=== PATIENT | male | born 1960 | race Caucasian/White ===

== ENCOUNTER 2022-10-26 14:31 | Outpatient (OUT) | payer OTHER, SELFPAY ==
[2022-10-26 16:19] LABS: Prostate Specific Antigen Dx 1.26 ng/mL (<=4.00)
== END 2022-10-26 14:32 | disposition home or self-care (01) ==
PROVIDERS: PCP Family Medicine; Visit Provider Urology
DX: N40.1 Benign prostatic hyperplasia with lower urinary tract symptoms (principal); R97.20 Elevated prostate specific antigen [PSA]; R80.9 Proteinuria, unspecified; R35.1 Nocturia
CPT/HCPCS: 36415; 84153

== ENCOUNTER 2022-12-29 07:50 | Outpatient (OUT) | payer OTHER, SELFPAY ==
[2022-12-29 08:08] LABS: Basophils Percent Auto 0.6 % (0.2-2.0); Eosinophils Absolute Auto 0.1 10^3/uL (0.0-0.7); Eosinophils Percent Auto 2.7 % (0.9-7.0); Hematocrit 42.8 % (42.0-54.0); Hemoglobin 14.9 g/dL (14.0-18.0); Immature Granulocytes Abs Auto 0.01 10^3/uL (0.00-0.03); Immature Granulocytes Pct Auto 0.2 % (0.0-0.5); Lymphocytes Absolute Auto 1.7 10^3/uL (1.2-3.8); Lymphocytes Percent Auto 36.6 % (20.5-60.0); Mean Corpuscular HGB Conc 34.8 g/dL (29.9-35.2); Mean Corpuscular Hemoglobin 32.7 pg (25.9-34.0); Mean Corpuscular Volume 94.1 fL (80.0-94.0); Mean Platelet Volume 9.3 fL (9.5-13.5); Monocytes Absolute Auto 0.5 10^3/uL (0.3-0.8); Monocytes Percent Auto 9.9 % (1.7-12.0); Neutrophils Absolute Auto 2.4 10^3/uL (1.4-6.5); Platelet Count 257 10^3/uL (150-450); Red Blood Count 4.55 10^6/uL (4.70-6.10); White Blood Count 4.8 10^3/uL (4.0-11.0)
[2022-12-29 08:25] LABS: Estimated Average Glucose 131 mg/dL; Glycohemoglobin A1C 6.2 % (4.5-6.2)
[2022-12-29 09:02] LABS: Prostate Specific Antigen Scrn 2.17 ng/mL (<=4.00)
[2022-12-29 11:29] LABS: Alanine Aminotransferase 35 U/L (16-63); Albumin Globulin Ratio 1.1; Albumin Level 4.1 g/dL (3.4-5.0); Alkaline Phosphatase 65 U/L (46-116); Anion Gap 9.2; Aspartate Amino Transferase 21 U/L (15-37); BUN Creatinine Ratio 11.2; Bilirubin Total 0.8 mg/dL (0.2-1.0); Calcium 8.3 mg/dL (8.5-10.1); Carbon Dioxide 31.4 mmol/L (21.0-32.0); Chloride 103 mmol/L (98-107); Chol HDL Ratio 4.8; Cholesterol 236 mg/dL (<=200); Estimated GFR (African America >60 (>=60); Estimated GFR (Non-African Ame >60 (>=60); Globulin 3.6 g/dL; Glucose 145 mg/dL (74-106); HDL Cholesterol 49 mg/dL (40-60); Potassium 3.6 mmol/L (3.5-5.1); Sodium 140 mmol/L (136-145); Thyroid Stimulating Hormone 3.147 uIU/mL (0.358-3.740); Total Protein 7.7 g/dL (6.4-8.2); Triglycerides 232 mg/dL (<=150); VLDL CHOLESTEROL 46.4 mg/dL
== END 2022-12-29 07:51 | disposition home or self-care (01) ==
PROVIDERS: PCP Family Medicine; Visit Provider Family Medicine
DX: Z00.00 Encounter for general adult medical examination without abnormal findings (principal); E78.5 Hyperlipidemia, unspecified; R73.09 Other abnormal glucose; Z12.5 Encounter for screening for malignant neoplasm of prostate
CPT/HCPCS: 36415; 80053; 80061; 83036; 84436; 84443; 84481; 85025; G0103

== ENCOUNTER 2024-01-20 09:39 | Outpatient (OUT) | payer MEDICARE, SELFPAY ==
[2024-01-20 10:38] LABS: Basophils Percent Auto 0.6 % (0.2-2.0); Eosinophils Absolute Auto 0.1 10^3/uL (0.0-0.7); Eosinophils Percent Auto 2.6 % (0.9-7.0); Hematocrit 41.9 % (42.0-54.0); Hemoglobin 14.7 g/dL (14.0-18.0); Immature Granulocytes Abs Auto 0.01 10^3/uL (0.00-0.03); Immature Granulocytes Pct Auto 0.2 % (0.0-0.5); Lymphocytes Absolute Auto 1.7 10^3/uL (1.2-3.8); Lymphocytes Percent Auto 33.8 % (20.5-60.0); Mean Corpuscular HGB Conc 35.1 g/dL (29.9-35.2); Mean Corpuscular Hemoglobin 32.5 pg (25.9-34.0); Mean Corpuscular Volume 92.5 fL (80.0-94.0); Mean Platelet Volume 9.7 fL (9.5-13.5); Monocytes Absolute Auto 0.5 10^3/uL (0.3-0.8); Monocytes Percent Auto 9.9 % (1.7-12.0); Neutrophils Absolute Auto 2.7 10^3/uL (1.4-6.5); Neutrophils Percent Auto 52.9 % (43.0-75.0); Platelet Count 260 10^3/uL (150-450); Red Blood Count 4.53 10^6/uL (4.70-6.10); Red Cell Distribution Width 11.8 % (11.0-15.0)
[2024-01-20 11:10] LABS: Estimated Average Glucose 160 mg/dL; Glycohemoglobin A1C 7.2 % (4.5-6.2)
[2024-01-20 11:26] LABS: Alanine Aminotransferase 54 U/L (16-63); Albumin Level 3.5 g/dL (3.4-5.0); Alkaline Phosphatase 78 U/L (46-116); Anion Gap 10.2; Aspartate Amino Transferase 42 U/L (15-37); BUN Creatinine Ratio 12.9; Bilirubin Total 0.8 mg/dL (0.2-1.0); Calcium 8.1 mg/dL (8.5-10.1); Carbon Dioxide 30.3 mmol/L (21.0-32.0); Chloride 104 mmol/L (98-107); Chol HDL Ratio 4.7; Cholesterol 192 mg/dL (<=200); Estimated GFR (African America >60 (>=60 mL/min/1.73m^2); Estimated GFR (Non-African Ame >60 (>=60 mL/min/1.73m^2); Free T3 2.54 pg/mL (2.18-3.98); Globulin 3.4 g/dL; Glucose 207 mg/dL (74-106); HDL Cholesterol 41 mg/dL (40-60); Potassium 3.5 mmol/L (3.5-5.1); Sodium 141 mmol/L (136-145); Thyroid Stimulating Hormone 2.358 uIU/mL (0.358-3.740); Total Protein 6.9 g/dL (6.4-8.2); Triglycerides 277 mg/dL (<=150); VLDL CHOLESTEROL 55.4 mg/dL
== END 2024-01-20 09:40 | disposition home or self-care (01) ==
LOC: LAB 09:43
PROVIDERS: PCP Family Medicine; Visit Provider Family Medicine
DX: E78.1 Pure hyperglyceridemia (principal); R97.20 Elevated prostate specific antigen [PSA]; E11.9 Type 2 diabetes mellitus without complications; I10 Essential (primary) hypertension; E78.5 Hyperlipidemia, unspecified; R53.83 Other fatigue; Z12.12 Encounter for screening for malignant neoplasm of rectum; E03.9 Hypothyroidism, unspecified
CPT/HCPCS: 36415; 80053; 80061; 83036; 84153; 84436; 84443; 84481; 85025

== ENCOUNTER 2024-01-20 09:55 | Outpatient (OUT) | payer MEDICARE, SELFPAY ==
[2024-01-20 11:49] LABS: Prostate Specific Antigen Dx 0.91 ng/mL (<=4.00)
== END 2024-01-20 09:56 | disposition home or self-care (01) ==
LOC: LAB 09:56
PROVIDERS: PCP Family Medicine; Visit Provider Urology
DX: R97.20 Elevated prostate specific antigen [PSA] (principal)
CPT/HCPCS: 36415; 84153

== ENCOUNTER 2025-03-09 08:31 | Outpatient (OUT) | payer MEDICARE, SELFPAY ==
--- OUTSIDE RECORDS SUMMARY | 2025-03-09 08:45 | XMS_ITS | CCD ---
Author Organization [facility] Care Team Providers Care Business Banking Manager Name Role Phone Sahra Byren Primary Care Physician KARTIK, DR BOCANEGRA Primary Care Unavailable CLAUDIA, DR DHEERAJ Wheeler Admitting Unavailable CLAUDIA, DR DHEERAJ Wheeler Attending Unavailable CLAUDIA, DR DHEERAJ Wheeler Consulting Unavailable KARTIK, DR BOCANEGRA Admitting Unavailable KARTIK, DR BOCANEGRA Attending Unavailable KARTIK, DR BOCANEGRA Primary Care Unavailable KARTIK, DR BOCANEGRA Consulting Unavailable LONG, DR TALLEY Admitting Unavailable GARCIA, DR TALLEY Attending Unavailable HOY, DR BOCANEGRA Primary Care Unavailable LONG, DR TALLEY Consulting Unavailable GARCIA, Dioni Wheeler Attending Unavailable GARCIA, Dioni Wheeler Attending Unavailable GARCIA, Dioni Wheeler Attending Unavailable GARCIA, Dioni Wheeler Admitting Unavailable GARCIA, Dioni Wheeler Attending Unavailable GARCIA, Dioni Wheeler Attending Unavailable GARCIA, Dioni Wheeler Admitting Unavailable GARCIA, Dioni Wheeler Attending Unavailable Allergies Allergy ClassificationReported Allergen(s)Allergy TypeDate of OnsetReaction(s) Facility (2 sources)No Known Medication Allergies; Translations: [No Known Medication Allergies]Propensity to adverse reactions (disorder)[facility] Repository Medications Current Medications MedicationDrug Class(es)DatesSig (Normalized)Sig (Original)Amlodipine (5 sources)Dihydropyridine Calcium Channel BlockerStart: 47-00-2564cyvlegkmhh Refills(s) 0 Start Date: 09/24/19 Status: Ordered Medication Dispense Status: Completed Total Allowed Fills: 1 Fills Dispensed: 0Start: 06-90-6248qounjfpwke Refills(s) 0 Start Date: 09/24/19 Status: Ordered Repeat number: 1Start: 82-28-6193wrmfmozozb Refills(s) 0 Start Date: 09/24/19 Status: Orderedbenazepril (5 sources)Angiotensin Converting Enzyme InhibitorStart: 49-43-5598qnhivpdiva Refills(s) 0 Start Date: 09/24/19 Status: Ordered Medication Dispense Status: Completed Total Allowed Fills: 1 Fills Dispensed: 0Start: 43-00-9243nqiodbwhtb Refills(s) 0 Start Date: 09/24/19 Status: Ordered Repeat number: 1Start: 64-33-6466iokiejqvjh Refills(s) 0 Start Date: 09/24/19 Status: Ordereddutasteride 0.5 mg / tamsulosin hydrochloride 0.4 mg oral capsule (5 sources)alpha-Adrenergic Malvin, 5-alpha Reductase InhibitorStart: 02-03-2024 End: 27-70-2505gsrckpgyjlv-tamsulosin 0.5 mg-0.4 mg oral capsule 1 cap(s), Oral, Daily for 90 day(s), 90 cap(s), Refill(s) 3, [employer] #72, 186, cm, 02/03/24 11:51:00 EST, Height/Length Dosing, 111, kg, 02/03/24 11:51:00 EST, Weight Dosing Start Date: 10/27/24 Stop Date: 10/22/25 Status: Ordered Medication Dispense Status: Completed Quantity: 90.0 Unit: cap(s) Total Allowed Fills: 4 Fills Dispensed:0Start: 95-01-1843ntfehiflekp-tamsulosin 0.5 mg-0.4 mg oral capsule 1 cap(s), Oral, Daily, 30 cap(s), Refill(s) 11, [facility] General Specific #[id number], 185, cm, 08/18/20 11:23:00 EDT, Height/Length Dosing, 105, kg, 08/18/20 11:23:00 EDT, Weight Dosing Start Date: 08/28/20 Status: Orderedezetimibe 10 mg oral tablet (5 sources)Dietary Cholesterol Absorption InhibitorStart: 96-86-1594bhdf 1 tablet by mouth once dailyZetia 10 mg Tab 10 mg = 1 tab(s), Oral, Daily, # 30 tab(s), Refills(s) 0 Start Date: 09/24/19 Status: Ordered Medication Dispense Status: Completed Quantity: 30.0 Unit: tab(s) Total Allowed Fills: 1 Fills Dispensed: 0Multi Vitamin+ (5 sources)Start: 96-13-2147Nanlc Vitamin+ Refill(s) 0 Start Date: 09/24/19 Status: Ordered Medication Dispense Status: Completed Total Allowed Fills: 1 Fills Dispensed: 0Start: 51-11-3769Ylryj Vitamin+ Refill(s) 0 Start Date: 09/24/19 Status: Ordered Repeat number: 1Start: 99-66-0776Ipnte Vitamin+ Refill(s) 0 Start Date: 09/24/19 Status: OrderedPravastatin (5 sources)HMG-CoA Reductase InhibitorStart: 46-04-3581ynavtakxyjo Refills(s) 0 Start Date: 09/24/19 Status: Ordered Medication Dispense Status: Completed Total Allowed Fills: 1 Fills Dispensed: 0Start: 20-42-9282iwualyxvesn Refills(s) 0 Start Date: 09/24/19 Status: Ordered Repeat number: 1Start: 51-95-4910hagulsakazx Refills(s) 0 Start Date: 09/24/19 Status: Ordered Problems Problem ClassificationProblemDateDocumented DateEpisodic/ChronicDisorders of lipid metabolism (6 sources)Hyperlipidemia; Translations: [Pure hypercholesterolemia, unspecified]Onset: 757781-52-5851OafsasrQceulolcw hypertension (6 sources)Hypertensive disorder; Translations: [Essential (primary) hypertension]Onset: 509190-01-4771ZvtgzzjXxiwmvzewhrkx symptoms and ill- defined conditions (20 sources)Proteinuria; Translations: [Proteinuria, unspecified]Onset: 85-55-7480AvoxpbkhUnvf and other crystal arthropathies (5 sources)Ouml78-56-5217ZuhplupYjlqvlznxyj of prostate (13 sources)Benign prostatic hypertrophy with outflow obstruction; Translations: [Benign prostatic hyperplasia with lower urinary tract symptoms]Onset: 94-96-9213YtlumexNvsxw inflammatory condition of skin (3 sources)Erythematous condition, unspecified; Translations: [ERYTHEMATOUS CONDITION UNSPECIFIED]Onset: 23-31-2697UxzzggpxGdlih screening for suspected conditions (not mental disorders or infectious disease) (10 sources)Raised prostate specific antigen; Translations: [Elevated prostate specific antigen [PSA]]Onset: 62-00-0435MhufqhmlQwej and subcutaneous tissue infections (1 source)Cellulitis of left lower limb; Translations: [CELLULITIS OF LEFT LOWER LIMB]Onset: 94-03-5917Ruonqoua Results Test NameValueInterpretationReference RangeFacilityUrology Office/Clinic Noteon 62-47-7648Qxmbnex Office/Clinic NoteUrology Office/Clinic Note Chief Complaint 1 yr w/PSA HPI Staff 64 yr old male here for 1 yr f/u w/ PSA and KATE DX: BPH, Elevated PSA *Iris 0.5-0.4mg QD therapy *dutasteride-tamsulosin 0.5 mg-0.4 mg qd PSA 09/12/20 - 1.41 (2.82) 10/06/21 - 1.47 (2.94) 10/26/22 - 1.26 (2.52) 01/20/24 - 0.91 (1.82) 01/15/25 - 0.6 (1.2) IPSS - 5 Pt. denies having incontinence Pt. denies having pain with urination Pt. denies having gross hematuria Pt. denies having abd pain Pt. denies having flank pain History of Present Illness Tests reviewed: reviewed UA, PSA I have reviewed the previous health record information and history for this patient from Dr. Garcia. I have reviewed and verified the staff HPI to be accurate for this encounter. Review of Systems PHQ Score Initial Depression Screen Score: 0 SCORE ROS - Provider Constitutional: denies weight loss, denies hot flashes. Eyes: denies eye problems. Gastrointestinal: denies nausea, denies vomiting. Cardiovascular: denies chest pain or angina. Integumentary: no dryness Musculoskeletal: denies musculoskeletal symptoms. ENMT: denies otolaryngeal symptoms. Respiratory: no shortness of breath. Heme/Lymph: denies easy bleeding tendency, denies easy bruising tendency. Psychiatric: no confusion, no anxiety. Genitourinary: See HPI. Physical Exam Vitals & Measurements T: 36.7 ???C(Tympanic) HR: 86(Peripheral) RR: 14 BP: 180/100 HT: 73 in HT: 186 cm WT: 240.304 lb WT: 109 kg BMI: 31.51 General Appearance: alert, no distress, well nourished, well developed male. Assessment/Plan 1. BPH with urinary obstruction (N40.1: Benign prostatic hyperplasia with lower urinary tract symptoms) PSA: 10/05/19 - has been taking Iris with Dutasteride component since at least this date 09/12/20 - 1.41 (2.82) 10/06/21 - 1.47 (2.94) 10/26/22 - 1.26 (2.52) 01/20/24 - 0.91 (1.82) 01/15/25 - 0.6 (1.2) UA shows trace-lysed blood >=1000 mg/dL glucose. IPSS 5 (5). Taking Iris 0.5- 0.4 mg qd. Pt to call for refills. Denies gross hematuria. No UTIs or sxs. Good stream, feels he is urinating the sameas last year. PSA decreased. Will cont to monitor. Given PSA decrease, can defer KATE to next year. Follow up 1 yr with PSA, KATE or sooner if needed. Pt understands and agrees with plan. Follow-up With When Contact Information LONG ZIMMERMAN, Dioni Wheeler, URL [facility] [place] [address]- Additional Instructions: 1 year w/ PSA Patient Education Benign Prostatic Hyperplasia I, Jade Godwin, personally scribed for Dr. Garcia on 02/05/2025 12:33:54. . Documentation recorded by the scribe, Jade Godwin, accurately reflects the services(s) I performed and decisions made by me. Authenticated by Dr. Garcia on 02/05/2025 12:36:41. Portions of this record may have been created with voice recognition artificial intelligence software, specifically [employer], [employer] and or [employer]. Substitutions may have occurred due to the inherent limitations of voice recognition and artificial intelligence software. Problem List/Past Medical History Ongoing BPH with urinary obstruction Elevated PSA Gout Hyperlipidemia Hypertension Microscopic hematuria Nocturia Proteinuria Historical No qualifying data Procedure/Surgical History Transrectal biopsy of prostate using ultrasound (US) guidance (07/22/2012), Colonoscopy. Medications amlodipine benazepril dutasteride-tamsulosin 0.5 mg-0.4 mg oral capsule, 1 cap(s), Oral, Daily, 3 refills Multi Vitamin+ pravastatin Zetia 10 mg Tab, 10 mg= 1 tab(s), Oral, Daily Allergies No Known Medication Allergies Social History Alcohol Never., 02/03/2024 Substance Abuse Never., 02/03/2024 Tobacco Never (less than 100 in lifetime) Tobacco Use:. Never Smokeless Tobacco Use:. Household tobacco concerns: No. Yes, 02/05/2025 Family History Diabetes mellitus type 2: Mother. Renal stone: Father. Immunizations Vaccine Date Status influenza, unspecified formulation 12/30/2020 Recorded SARS-CoV-2 (COVID-19) mRNA-1273 vaccine 08/11/2020 Recorded SARS-CoV-2 (COVID-19) mRNA-1273 vaccine 07/14/2020 Recorded SARS-CoV-2 (COVID-19) mRNA-1273 vaccine 05/2020 Recorded influenza, unspecified formulation 01/20/2020 Recorded influenza virus vaccine, inactivated 01/05/2020 Recorded Lab Results Ambulatory Point of Care Results Bilirubin Urine Dipstick: Negative (02/05/25 11:12:00) Blood Urine Dipstick: Trace-intact (02/05/25 11:12:00) Glucose Urine Dipstick: Negative (02/05/25 11:12:00) Ketones Urine Dipstick: Negative (02/05/25 11:12:00) Leukocytes Urine Dipstick: Negative (02/05/25 11:12:00) Nitrite Urine Dipstick: Negative (02/05/25 11:12:00) Protein Urine Dipstick: 1+ (30 mg/dl) (02/05/25 11:12:00) Specific [place] Urine Dipstick: 1.010 (02/05/25 11:12:00) Urine Appearance Urine Dipstick: Sarai (more content not included)...[facility] HospitalComment on above:Result Comment: Electronically Signed By: Dioni GARCIA MD\.br\Date and Time Signed: 02/05/25 12:36 EST\.br\Electronically Co-Signed By: Jade Godwin\.br\Date and Time Co- Signed: 02/05/25 12:34 ESTPSA Totalon 96-10-8812[facility] Total0.6 ng/mLNormal0.1-3.5 [facility] HospitalComment on above:Result Comment: The concentration of PSA determined by different manufacturers can vary due to differences in assay methods and reagent specificity. Values obtained from different assay methods cannot be used interchangeably. The methodology used for this result was chemiluminescence using [employer]'s Access Hybritech PSA reagent.Performed By: #### [id number] #### [facility] [address], [place] [address]VJG AUTO DIFFon 30-98-3233JMAK #0.0 103/ulNormal0.0-0.1The [facility] DaytonComment on above:Performed By: #### CBC #### [facility] [address] [place] [address] Dr. Krishna ArshadBasophils/100 WBC (Bld)0.5 %Normal0.2-2.0[place] Comment on above:Performed By: #### CBC #### [facility] [address] [address] [address] Krishna Sinclair #0.2 103/ulNormal0.0-0.7The [facility] DaytonComment on above: Performed By: #### CBC #### [facility] [address] [place] [address] Dr. Krishna Patinoosinophils/100 WBC (Bld)3.0 %Normal0.9-7.0[place] Comment on above:Performed By: #### CBC #### [facility] [address] [address] [address] Krishna Patinorythrocyte distribution width (RBC) [Ratio]12.3 %Zwaytq96.0-15.0 [place]Comment on above:Performed By: #### CBC #### [facility] [address] [place] [address] Dr. Krishna ArshadHematocrit (Bld) [Volume fraction]41.4 %Critically low42.0-54.0 [place]Comment on above:Performed By: #### CBC #### [facility] [address] [place] [address] Dr. Krishna ArshadHemoglobin (Bld) [Mass/Vol]14.4 g/jYGnofpi46.0-18.0The [facility] DaytonComment on above:Performed By: #### CBC #### [facility] [address] [place] [address] Dr. Krishna Brock #0.01 10e3/ulNormal0.00-0.03The [facility] DaytonComment on above:Performed By: #### CBC #### [facility] [address] [place] [address] Dr. Krishna Brock %0.2 %Normal0.0-0.5The [facility] DaytonComment on above: Performed By: #### CBC #### [facility] [address] [place] [address] Dr. Krishna Swift #2.2 103/ulNormal1.2-3.8The [facility] DaytonComment on above:Performed By: #### CBC #### [facility] [address] [place] [address] Dr. Krishna Crowehocytes/100 WBC (Bld)33.3 %Hioebf59.5-60.0The [facility] DaytonCompontiac [facility] on above:Performed By: #### CBC #### [facility] [address] [place] [address] Dr. Krishna GrandeUAL DIFF REQNONormalThe [facility] DaytonComment on above: Performed By: #### CBC #### [facility] [address] [place] [address] Dr. Krishna Nevarez (RBC) [Entitic mass]32.3 dnFucmkk24.9-34.0The [facility] DaytonComment on above:Performed By: #### CBC #### [facility] [address] [place] [address] Dr. Krishna Nevarez (RBC) [Mass/Vol]34.8 g/aANjrnjc58.9-35.2The [facility] DaytonComment on above:Performed By: #### CBC #### [facility] [address] [address] [address] Krishna NevarezV (RBC) [Entitic vol]92.8 hHUtabgx37.0-94.0The [facility] DaytonComment on above:Performed By: #### CBC #### [facility] [address] [place] [address] Dr. Krishna Brown #0.8 103/ulNormal0.3-0.8The [facility] DaytonComment on above:Performed By: #### CBC #### [facility] [address] [place] [address] Dr. Krishna Rodriguezocytes/100 WBC (Bld)11.6 %Normal1.7-12.0The [facility] Comment on above:Performed By: #### CBC #### [facility] [address] [place] [address] Dr. Krishna Díaz #3.4 103/ulNormal1.4-6.5The [facility] DaytonComment on above:Performed By: #### CBC #### [facility] [address] [place] [address] Dr. Krishna Ferrerutrophils/100 WBC (Bld)51.4 %Zvgstn41.0-75.0The [facility] DaytonComment on above:Performed By: #### CBC #### [facility] [address] [place] [address] Dr. Krishna Galvanlet mean volume (Bld) [Entitic vol]9.0 fLCritically low 9.5-13.5The [facility] DaytonComment on above:Performed By: #### CBC #### [facility] [address] [place] [address] Dr. Krishna ArshadPLT343 103/ihKclwln426-028Fjc [facility] DaytonComment on above: Performed By: #### CBC #### [facility] [address] [place] [address] Dr. Krishna ArshadRBC4.46 106/ulCritically low4.70-6.10The [facility] DaytonComment on above:Performed By: #### CBC #### [facility] [address] [place] [address] Dr. Krishna ArshadWBC6.6 103/ulNormal4.0-11.0The [facility] DaytonComment on above: Performed By: #### CBC #### [facility] [address] [place] [address] Dr. Krishna ArshadCULTURE BLOODon 34-30-8033Dylzgxjkyot examination of blood, cultureCulture Observations: NO GROWTH AT 5 DAYS.NormalThe [facility] HospitalComment on above:Performed By: #### [email or web address] #### [facility] [address] [place] [address] Dr. Krishna ArshadMicroscopic examination of blood, cultureCulture Observations: NO GROWTH AT 5 DAYS.NormalThe [facility] HospitalComment on above:Performed By: #### BLDCX2 #### [facility] [address] [place] [address] Dr. Krishna ArshadLACTATE/LACTIC ACIDon 74-15-0404Jichgbn [Moles/Vol]1.9 mmol/L Normal0.4-1.9The [facility] DaytonComment on above:Performed By: #### BLDCX2 #### [facility] [address] [place] [address] Dr. Krishna ArshadPRORuel 14(COMP METB)on 67-48-4588Epzfmls [Mass/Vol]3.7 g/dLNormal 3.4-5.0The [facility] DaytonComment on above:Performed By: #### BLDCX2 #### [facility] [address] [place] [address] Dr. Krishna ArshadAlbumin/Globulin [Mass ratio]0.9 {ratio}NormalThe [facility] DaytonComment on above:Performed By: #### BLDCX2 #### [facility] [address] [place] [address] Dr. Krishna GutierrezP [Catalytic activity/Vol]75 U/ABusbaj13-556Lur [facility] DaytonComment on above:Performed By: #### BLDCX2 #### [facility] [address] [place] [address] Dr. Krishna GutierrezT [Catalytic activity/Vol]36 U/CBljsce22-80Fcv [facility] DaytonComment on above:Performed By: #### BLDCX2 #### [facility] [address] [place] [address] Dr. Krishna ArshadAnion gap [Moles/Vol]11.3 mmol/LNormalCent[place] Comment on above:Performed By: #### BLDCX2 #### [facility] [address] [place] [address] Dr. Krishna ArshadAST [Catalytic activity/Vol]28 U/PWkybyr90-62Pmq [facility] DaytonComment on above:Performed By: #### BLDCX2 #### [facility] [address] [place] [address] Dr. Krishna ArshadBilirubin [Mass/Vol]0.5 mg/dLNormal0.2-1.0[place] Comment on above:Performed By: #### BLDCX2 #### [facility] [address] [place] [address] Dr. Krishna ArshadCalcium [Mass/Vol]8.6 mg/dLNormal8.5-10.1[place] Comment on above:Performed By: #### BLDCX2 #### [facility] [address] [place] [address] Dr. Krishna ArshadChloride [Moles/Vol]102 mmol/HKdlura62-701Mdl [facility] Comment on above:Performed By: #### BLDCX2 #### [facility] [address] [place] [address] Dr. Krishna ArshadCO2 [Moles/Vol]29.2 mmol/CIzaxnz65.0-32.0[place] Comment on above:Performed By: #### BLDCX2 #### [facility] [address] [place] [address] Dr. Krishna ArshadCreatinine [Mass/Vol]0.76 mg/dLNormal0.70-1.30The [facility] DaytonComment on above:Performed By: #### BLDCX2 #### [facility] [address] [address] [address] Krishna PatinoGFR-AF EQUATORIAL GUINEAN>60Normal>=60The [facility] DaytonComment on above:Performed By: #### BLDCX2 #### [facility] [address] [address] [address] Krishna PatinoGFR-NON AF EQUATORIAL GUINEAN>60Normal>=60The [facility] DaytonComment on above:Performed By: #### BLDCX2 #### [facility] [address] [address] [address] Krishna ArshadGlobulin (S) [Mass/Vol]4.1 g/dLNormalThe [facility] DaytonComment on above:Performed By: #### BLDCX2 #### [facility] [address] [place] [address] Dr. Krishna ArshadGlucose [Mass/Vol]147 mg/dLCritically lotj39-040Dzr [facility] DaytonComment on above:Performed By: #### BLDCX2 #### [facility] [address] [place] [address] Dr. Krishna ArshadPotassium [Moles/Vol]3.5 mmol/LNormal3.5-5.1The [facility] Comment on above:Performed By: #### BLDCX2 #### [facility] [address] [place] [address] Dr. Krishna ArshadProtein [Mass/Vol]7.8 g/dLNormal6.4-8.2The [facility] Comment on above:Performed By: #### BLDCX2 #### [facility] [address] [place] [address] Dr. Krishna ArshadSodium [Moles/Vol]139 mmol/RXnsnjr371-791Trx [facility] Comment on above:Performed By: #### BLDCX2 #### [facility] [address] [place] [address] Dr. Krishna ArshadUrea nitrogen [Mass/Vol]10.0 mg/dLNormal7.0-18.0The [facility] DaytonComment on above:Performed By: #### BLDCX2 #### [facility] [address] [address] [address] Krishna ArshadUrea nitrogen/Creatinine [Mass ratio]13.2 mg/mgNormalThe [facility] DaytonComment on above:Performed By: #### BLDCX2 #### [facility] [address] [place] [address] Dr. Krishna ArshadINSULINon 97-76-8707Wmbktoi72.2 uIU/mLNormal2.6-24.9The [facility] DaytonComment on above:Performed By: #### BLDCX2 #### [facility] [address] [place] [address] Dr. Krishna SaldañaC AUTO DIFFon 50-59-7970LUSU #0.0 103/ulNormal0.0-0.1The [facility] DaytonComment on above:Performed By: #### CBC #### [facility] [address] [place] [address] Dr. Krishna ArshadBasophils/100 WBC (Bld)0.5 %Normal0.2-2.0[place] Comment on above:Performed By: #### CBC #### [facility] [address] [place] [address] Dr. Krishna Sinclair #0.1 103/ulNormal0.0-0.7The [facility] DaytonComment on above: Performed By: #### CBC #### [facility] [address] [place] [address] Dr. Krishna Patinoosinophils/100 WBC (Bld)2.2 %Normal0.9-7.0[place] Comment on above:Performed By: #### CBC #### [facility] [address] [place] [address] Dr. Krishna Patinorythrocyte distribution width (RBC) [Ratio]11.9 %Uhoque94.0-15.0 The [facility] DaytonComment on above:Performed By: #### CBC #### [facility] [address] [place] [address] Dr. Krishna ArshadHematocrit (Bld) [Volume fraction]41.1 %Critically low42.0-54.0 The [facility] DaytonComment on above:Performed By: #### CBC #### [facility] [address] [place] [address] Dr. Krishna ArshadHemoglobin (Bld) [Mass/Vol]14.4 g/yGUiveqy40.0-18.0The [facility] DaytonComment on above:Performed By: #### CBC #### [facility] [address] [place] [address] Dr. Krishna Brock #0.01 10e3/ulNormal0.00-0.03The [facility] DaytonComment on above:Performed By: #### CBC #### [facility] [address] [place] [address] Dr. Krishna Brock %0.2 %Normal0.0-0.5The [facility] DaytonComment on above: Performed By: #### CBC #### [facility] [address] [place] [address] Dr. Krishna Swift #1.6 103/ulNormal1.2-3.8The [facility] DaytonComment on above:Performed By: #### CBC #### [facility] [address] [place] [address] Dr. Krishna Crowehocytes/100 WBC (Bld)39.3 %Snydhi66.5-60.0The [facility] DaytonComment on above:Performed By: #### CBC #### [facility] [address] [place] [address] Dr. Krishna GrandeUAL DIFF REQNONormalThe [facility] DaytonComment on above: Performed By: #### CBC #### [facility] [address] [place] [address] Dr. Krishna Nevarez (RBC) [Entitic mass]32.7 pkEfaoay15.9-34.0The [facility] DaytonComment on above:Performed By: #### CBC #### [facility] [address] [place] [address] Dr. Krishna Nevarez (RBC) [Mass/Vol]35.0 g/jFTmcdme75.9-35.2The [facility] DaytonComment on above:Performed By: #### CBC #### [facility] [address] [place] [address] Dr. Krishna Monsalve (RBC) [Entitic vol]93.2 lHLmpghx23.0-94.0The [facility] DaytonComment on above:Performed By: #### CBC #### [facility] [address] [place] [address] Dr. Krishna Brown #0.5 103/ulNormal0.3-0.8The [facility] DaytonComment on above:Performed By: #### CBC #### [facility] [address] [place] [address] Dr. Krishna Rodriguezocytes/100 WBC (Bld)11.6 %Normal1.7-12.0The [facility] Comment on above:Performed By: #### CBC #### [facility] [address] [place] [address] Dr. Krishna Díaz #1.9 103/ulNormal1.4-6.5The [facility] DaytonComment on above:Performed By: #### CBC #### [facility] [address] [place] [address] Dr. Krishna Ferrerutrophils/100 WBC (Bld)46.2 %Zsvfwu59.0-75.0The [facility] DaytonComment on above:Performed By: #### CBC #### [facility] [address] [place] [address] Dr. Krishna Galvanlet mean volume (Bld) [Entitic vol]9.3 fLCritically low 9.5-13.5The [facility] DaytonComment on above:Performed By: #### CBC #### [facility] [address] [place] [address] Dr. Krishna LandisT259 103/twZpljky708-209Uhg [facility] DaytonComment on above: Performed By: #### CBC #### [facility] [address] [place] [address] Dr. Krishna ArshadRBC4.41 106/ulCritically low4.70-6.10The [facility] DaytonComment on above:Performed By: #### CBC #### [facility] [address] [address] [address] Krishna ArshadWBC4.2 103/ulNormal4.0-11.0[facility] on above: Performed By: #### CBC #### [facility] [address] [address] [address] Krishna ArshadGLYCOHEMOGLOBIN A1Con 10-33-6633HJQ RECOMMENDATIONADA THERAPEUTIC TARGET 6.0 - 7.0 ACTION SUGGESTED > 7.0UK HealthcareComment on above:Performed By: #### A1C #### [facility] [address] [place] [address] Dr. Krishna ArshadGlucose [Mass/Vol]134 mg/dLNoEast Ohio Regional HospitalComment on above:Performed By: #### A1C #### [facility] [address] [place] [address] Dr. Krishna ArshadHbA1c (Bld) [Mass fraction]6.3 %Critically high<=6.0The [facility] DaytonComment on above:Performed By: #### A1C #### [facility] [address] [place] [address] Dr. Krishna ArshadLIPID PROFILEon 02-03-3957YGSU-HDL RATIO NORMSEE Medina HospitalComment on above:Result Comment: 3.3 - 4.4 LOW RISK 4.4 - 7.1 AVERAGE RISK 7.1 - 11.0 MODERATE RISK >11.0 HIGH RISKPerformed By: #### URIC, LIPID, CMP #### [facility] [address] [address] [address] Krishna ArshadCholesterol [Mass/Vol]174 mg/dLNormal<=200[place] Comment on above:Performed By: #### URIC, LIPID, CMP #### [facility] [address] [place] [address] Dr. Krishna Martinezesterol in HDL [Mass/Vol]39 mg/dLCritically lqg01-99XrpVeterans Health Administration on above:Performed By: #### URIC, LIPID, CMP #### [facility] [address] [address] [address] Krishna Martinezesterol in LDL [Mass/Vol]87.8 mg/dLSt. Francis Hospital on above:Performed By: #### URIC, LIPID, CMP #### [facility] [address] [address] [address] Krishna Mcgraw.total/Cholesterol in HDL [Mass ratio]4.5 {ratio} NormalThe [facility] on above:Performed By: #### URIC, LIPID, CMP #### [facility] [address] [place] [address] Dr. Krishna Galindo NORMAL> or = 60 mg/dl - LOW CARDIOVASCULAR RISK <40 mg/dl - HIGH CARDIOVASCULAR RISKSt. Francis Hospital on above:Performed By: #### URIC, LIPID, CMP #### [facility] [address] [address] [address] Krishna Cheng CALC NORMALSEE BELOWUK HealthcareCompontiac general hospital on above:Result Comment: <100 mg/dl OPTIMAL 100 - 129 mg/dl NEAR OR ABOVE OPTIMAL 130 - 159 mg/dl BORDERLINE HIGH 160 - 189 mg/dl HIGH >190 mg/dl VERY HIGH Performed By: #### URIC, LIPID, CMP #### [facility] [address] [place] [address] Dr. Krishna ArshadTriglyceride [Mass/Vol]236 mg/dLCritically high<=150The [facility] on above:Performed By: #### URIC, LIPID, CMP #### [facility] [address] [place] [address] Dr. Krishna ArshadVLDL CALC47.2 mg/dLSt. Francis Hospital on above: Performed By: #### URIC, LIPID, CMP #### [facility] [address] [address] [address] Krishna Frost BLD IMMUNO SCREENon 52-53-6064IFKVBK BLOODNegativeNormal NEGATIVEThe [facility] HospitalComment on above:Performed By: #### OBSCRN #### [facility] [address] [address] [address] Krishna Leggett 14(COMP METB)on 31-86-5683Ztisfmz [Mass/Vol]4.0 g/dLNormal 3.4-5.0The [facility] Centerment on above:Performed By: #### URIC, LIPID, CMP #### [facility] [address] [place] [address] Dr. Krishna ArshadAlbumin/Globulin [Mass ratio]1.3 {ratio}NormalThe [facility] DaytonComment on above:Performed By: #### URIC, LIPID, CMP #### [facility] [address] [place] [address] Dr. Krishna Chandler [Catalytic activity/Vol]71 U/PExijto30-578Bqh [facility] Centerment on above:Performed By: #### URIC, LIPID, CMP #### [facility] [address] [place] [address] Dr. Krishna Farr [Catalytic activity/Vol]47 U/VSzyuxm78-42Abu [facility] DaytonComment on above:Performed By: #### URIC, LIPID, CMP #### [facility] [address] [place] [address] Dr. Krishna Gonzalez gap [Moles/Vol]11.9 mmol/LNormalThe [facility] Comment on above:Performed By: #### URIC, LIPID, CMP #### [facility] [address] [place] [address] Dr. Krishna Cheng [Catalytic activity/Vol]26 U/MTcoivf79-67Twl [facility] on above:Performed By: #### URIC, LIPID, CMP #### [facility] [address] [place] [address] Dr. Krishna Woodsirubin [Mass/Vol]0.8 mg/dLNormal0.2-1.3The [facility] Comment on above:Performed By: #### URIC, LIPID, CMP #### [facility] [address] [place] [address] Dr. Yilan ChangCalcium [Mass/Vol]8.2 mg/dLCritically low8.5-10.1[facility] Centerment on above:Performed By: #### URIC, LIPID, CMP #### [facility] [address] [place] [address] Dr. Krishna ArshadChloride [Moles/Vol]103 mmol/BYyxyvg65-845JsiCent[place] Comment on above:Performed By: #### URIC, LIPID, CMP #### [facility] [address] [place] [address] Dr. Krishna ArshadCO2 [Moles/Vol]29.1 mmol/RMnkqcy65.0-30.0[place] Comment on above:Performed By: #### URIC, LIPID, CMP #### [facility] [address] [place] [address] Dr. Krishna ArshadCreatinine [Mass/Vol]0.87 mg/dLNormal0.66-1.25The [facility] DaytonComment on above:Performed By: #### URIC, LIPID, CMP #### [facility] [address] [place] [address] Dr. Krishna PatinoGFR-AF EQUATORIAL GUINEAN>60Normal>=60The [facility] DaytonComment on above:Performed By: #### URIC, LIPID, CMP #### [facility] [address] [place] [address] Dr. Krishna PatinoGFR-NON AF EQUATORIAL GUINEAN>60Normal>=60The [facility] DaytonComment on above:Performed By: #### URIC, LIPID, CMP #### [facility] [address] [place] [address] Dr. Krishna ArshadGlobulin (S) [Mass/Vol]3.2 g/dLNormalThe [facility] DaytonComment on above:Performed By: #### URIC, LIPID, CMP #### [facility] [address] [place] [address] Dr. Krishna AsrhadGlucose [Mass/Vol]149 mg/dLCritically jguw41-941Vpe [facility] DaytonComment on above:Performed By: #### URIC, LIPID, CMP #### [facility] [address] [address] [address] Krishna ArshadPotassium [Moles/Vol]4.0 mmol/LNormal3.4-5.0The [facility] Comment on above:Performed By: #### URIC, LIPID, CMP #### [facility] [address] [address] [address] Krishna ArshadProtein [Mass/Vol]7.2 g/dLNormal6.1-8.2The [facility] Comment on above:Performed By: #### URIC, LIPID, CMP #### [facility] [address] [place] [address] Dr. Krishna ArshadSodium [Moles/Vol]140 mmol/WHlrjrw922-270Qtl [facility] Comment on above:Performed By: #### URIC, LIPID, CMP #### [facility] [address] [place] [address] Dr. Krishna ArshadUrea nitrogen [Mass/Vol]10.0 mg/dLNormal7.0-18.0The [facility] DaytonComment on above:Performed By: #### URIC, LIPID, CMP #### [facility] [address] [address] [address] Krishna Alonzo nitrogen/Creatinine [Mass ratio]11.5 mg/mgNormalThe [facility] DaytonComment on above:Performed By: #### URIC, LIPID, CMP #### [facility] [address] [place] [address] Dr. Krishna ArshadURIC ACID SERUMon 61-51-1406Zqtag [Mass/Vol]7.7 mg/dLNormal 3.5-8.5The [facility] DaytonComment on above:Performed By: #### URIC, LIPID, CMP #### [facility] [address] [place] [address] Dr. Krishna Arshad Vital Signs Date TimeVital SignValuePerforming FapqjmlmcXwoxzdpj04-42-8904 11:39-0500Blood Pressure LocationPatric Baoku [facility]11-04-2024 11:39-0500Body fmqkijgsbjb04.6 [degF]Dioni GARCIA [facility]11-04-2024 11:39-0500Diastolic blood gofgmsll10 mm[Hg]Dioni GARCIA [facility]11-04-2024 11:39-0500Heart rate78 /minPatrick GARCIA [facility]11-04-2024 11:39-0500Respiratory rate19 /minPatrick GARCIA [facility]11-04-2024 11:39-0500Systolic blood qqfyaeci539 mm[Hg]Dioni LONG [facility]07-31-2023 15:10-0400Blood Pressure LocationPaExploretrip [facility]07-31-2023 15:10-0400Diastolic blood elnyhsmd84 mm[Hg]Dioni GARCIA [facility]07-31-2023 15:10-0400Heart rate68 /minPaMerlin Diamondsk GARCIA [facility]07-31-2023 15:10-0400Respiratory rate16 /minPatrick GARCIA [facility]07-31-2023 15:10-0400Systolic blood qjzflezg756 mm[Hg]Dioni GARCIA [facility]07-25-2022 14:59-0400Blood Pressure LocationPaExploretrip [facility] 07-25-2022 14:59-0400Diastolic blood cyrnkvhp40 mm[Hg] Dioni GARCIA [facility] 07-25-2022 14:59-0400Heart rate77 /minPatrick GARCIA [facility] 07-25-2022 14:59-0400Respiratory rate16 /minPatrick GARCIA [facility] 07-25-2022 14:59-0400Systolic blood rcberhks072 mm[Hg] Dioni GARCIA [facility] Encounters Encounter DateEncounter TypeCare ProviderFacilityStart: 83-89-3213kkehjvsybd Dioni GARCIAFacility:EU ueStart: 09-73-3307stjbsifynuAteqoyu R WATERS Facility:EU tart: 02-05-2025 End: 66-25-4443rmbolkxyddHxycuaz R WATERSFacility:EU [place]Start: 02-05-2025 End: 47-60-2703Puqbwxq encounter procedureDioni GARCIA [facility] start: 01-15-2025 End: 49-64-1007draotpfgceUataxsy R WATERSFacility:EU [place]Start: 01-15-2025 End: 11-24-0631Esivjnk encounter procedureDioni GARCIA [facility] start: 02-03-2024 End: 87-75-1868Hegzfgl encounter procedurePajeremie Wheeler LONG [facility] start: 10-29-2022 End: 87-39-8810Vqmzcln encounter procedurePajeremie Wheeler GARCIA [facility] start: 02-22-2022 End: 02-15-0016tqiofxixfdVD SAHRA HOYFacility:C2Lwaas: 10-23-2021 End: 51-28-5555Wlxltso encounter procedurePagiannirandell Wheeler GARCIA [facility] start: 10-06-2021 End: 30-67-6482ktedupvhduTB DIONI GARCIAFacility:R4Snlsx: 52-61-7565Qqbqfasum for general adult medical examination without abnormal findingsDR SAHRA HOYThe [facility] HospitalStart: 06-24-2021 End: 63-53-1486htiqgvxckmLV SAHRA HOYFacility:T8Ixgjd: 06-24-2021 End: 32-53-7286Iazdbiylj for general adult medical examination without abnormal findingsDR SAHRA HOYFacility:H1 Procedures DateProcedureProcedure DetailPerforming ClinicianStart: 19-67-4502ZEY screening DR SAHRA David on above:Performed By: #### PSAD #### [facility] [address] [place] [address] Dr. Krishna Groves: 58-52-9747EBP screeningDR SAHRA HOYComment on above: Performed By: #### PSASC #### [facility] [address] [place] [address] Dr. Krishna Groves: 92-03-4122Gcbzfrkbqmi biopsy of prostate using ultrasound guidanceDioni GARCIA ColonoscopyFibroblast Plan of Treatment DateCare ActivityDetailAuthorPSA Total 12/30/25[facility] Immunizations Immunization DateImmunizationNotesCare KglbncvlXaimmgtl26-92-7195ccteecsxe, unspecified formulationPaExploretrip [facility]05-13-2021SARS-CoV-2 (COVID-19) mRNA-1273 vaccineFibroblast [facility]04-15-2021SARS-CoV-2 (COVID-19) mRNA-1273 vaccineFibroblast [facility]03-01-2021SARS-CoV-2 (COVID-19) mRNA-1273 vaccineFibroblast [facility] 10-004981-84-4893ifsabeyzi, unspecified formulationFibroblast [facility]10-06-2020influenza virus vaccine, unspecified formulationOhExploretrip [facility] Payers DatePayer CategoryPayerPolicy [id number] [id number] 1962 [id number] 2..[id number]. [id number] 2..840.1.962687.3.57[id number] [id number] 2.16.840.1.211227.3.57[id number] 2.16.840.1.309793.3.57[id number] 2.16.840.1.244893.3.57[id number] 2.16.840.1.969574.3.57[id number] 2.16.840.1.184609.3.579.2.727 Social History DateTypeDetailFacilityStart: 10-23-2021 End: 60-43-5615Fzeuilu smoking statusNever smoked tobacco (finding)[facility] [email or web address] sex Assigned At BirthMaleExec[facility] [email or web address] Tobacco smoking statusNeverExec[facility] Hospitalexual OrientationExec[facility] [email or web address] start: 05-17-9537ZxmEukq (finding)[facility] Functional Status JkxtKqllemqjudLezdaoImdxrlqh67-84-3787Gotrkligic StatusN/AExec[facility]07-31-2023Functional StatusN/A[facility]07-25-2022Functional StatusN/A [facility] [email or web address] Clinical Notes 10-23-2021 to 02-05-2025 Note Date & FuxwGieiLbgobuis33-72-6493 Hospital Discharge instructions Patient Education 02/05/2025 12:32:04 Benign Prostatic Hyperplasia Benign Prostatic Hyperplasia Benign prostatic hyperplasia (BPH) is an enlarged prostate gland that is caused by the normal agingprocess. The prostate may get bigger as a man gets older. The condition is not caused by cancer. The prostate is a walnut-sized gland that is involved in the production of semen. It is located in front of the rectum and below the bladder. The bladder stores urine. The urethra carries stored urine ou t of the body. An enlarged prostate can press on the urethra. This can make it harder to pass urine. The buildup of urine in the bladder can cause infection. Back pressure and infection may progress to bladder damage and kidney (renal) failure. What are the causes? This condition is part of the normal aging process. However, not all men develop problems from thiscondition. If the prostate enlarges away from the urethra, urine flow will not be blocked. If it enlarges toward the urethra and compresses it, there will be problems passing urine. What increases the risk? This condition is more likely to develop in men older than 50 years. What are the signs or symptoms? Symptoms of this condition include: Getting up often during the night to urinate. Needing to urinate frequently during the day. Difficulty starting urine flow. Decrease in size and strength of your urine stream. Leaking (dribbling) after urinating. Inability to pass urine. This needs immediate treatment. Inability to completely empty your bladder. Pain when you pass urine. This is more common if there is also an infection. Urinary tract infection (UTI). How is this diagnosed? This condition is diagnosed based on your medical history, a physical exam, and your symptoms. Tests will also be done, such as: A post-void bladder scan. This measures any amount of urine that may remain in your bladder after you finish urinating. A digital rectal exam. In a rectal exam, your health care provider checks your prostate by putting a lubricated, gloved finger into your rectum to feel the back of your prostate gland. This exam detects the size of your gland and any abnormal lumps or growths. An exam of your urine (urinalysis). A prostate specific antigen (PSA) screening. This is a blood test used to screen for prostate cancer. An ultrasound. This test uses sound waves to electronically produce a picture of your prostate gland. Your health care provider may refer you to a specialist in kidney and prostate diseases (urologist). How is this treated? Once symptoms begin, your health care provider will monitor your condition (active surveillance or watchful waiting). Treatment for this condition will depend on the severity of your condition. Treatment may include: Observation and yearly exams. This may be the only treatment needed if your condition and symptoms are mild. Medicines to relieve your symptoms, including: ?Medicines to shrink the prostate. ?Medicines to relax the muscle of the prostate. Surgery in severe cases. Surgery may include: ?Prostatectomy. In this procedure, the prostate tissue is removed completely through an open incision or with a laparoscope or robotics. ?Transurethral resection of the prostate (TURP). In this procedure, a tool is inserted through the opening at the tip of the penis (urethra). It is used to cut away tissue of the inner core of the prostate. The pieces are removed through the same opening of the penis. This removes the blockage. ?Transurethral incision (TUIP). In this procedure, small cuts are made in the prostate. This lessens the prostate's pressure on the urethra. ?Transurethral microwave thermotherapy (TUMT). This procedure uses microwaves to create heat. The heat destroys and removes a small amount of prostate tissue. ?Transurethral needle ablation (TUNA). This procedure uses radio frequencies to destroy and remove a small amount of prostate tissue. ?Interstitial laser coagulation (ILC). This procedure uses a laser to destroy and remove a small amount of prostate tissue. ?Transurethral electrovaporization (TUVP). This procedure uses electrodes to destroy and remove a small amount of prostate tissue. ?Prostatic urethral lift. This procedure inserts an implant to push the lobes of the prostate away from the urethra. Follow these instructions at home: Take vvfe-usg-bizhvmf and prescription medicines only as told by your health care provider. Monitor your symptoms for any changes. Contact your health care provider with any changes. Avoid drinking large amounts of liquid before going to bed or out in public. Avoid or reduce how much caffeine or alcohol you drink. Give yourself time when you urinate. Keep all follow-up visits. This is important. Contact a health care provider if: You have unexplained back pain. Your symptoms do not get better with treatment. You develop side effects from the medicine you are taking. Your urine becomes very dark or has a bad smell. Your lower abdomen becomes distended and you have trouble passing urine. Get help right away if: You have a fever or chills. You suddenly cannot urinate. You feel light-headed or very dizzy, or you faint. There are large amounts of blood or clots in your urine. Your urinary problems become hard to manage. You develop moderate to severe low back or flank pain. The flank is the side of your body between the ribs and the hip. These symptoms may be an emergency. Get help right away. Call 911. Do not wait to see if the symptoms will go away. Do not drive yourself to the hospital. Summary Benign prostatic hyperplasia (BPH) is an enlarged prostate that is caused by the normal aging process. It is not caused by cancer. An enlarged prostate can press on the urethra. This can make it hard to pass urine. This condition is more likely to develop in men older than 50 years. Get help right away if you suddenly cannot urinate. This information is not intended to replace advice given to you by your health care provider. Make sure you discuss any questions you have with your health care provider. Document Revised: 10/04/2021 Document Reviewed: 10/04/2021 [employer] Patient Education 2023 [employer]. Follow Up Care 02/03/2024 12:22:34 With:LONG ZIMMERMAN, Dioni Wheeler, URL Address: [address] [place], [place] [id number]- When: Unknown Comments:1 year w/ PSA [facility] 11-07-2025 NotePatient Education Urology Benign Prostatic Hyperplasia Benign prostatic hyperplasia (BPH) is an enlarged prostate gland that is caused by the normal agingprocess. The prostate may get bigger as a man gets older. The condition is not caused by cancer. The prostate is a walnut-sized gland that is involved in the production of semen. It is located in front of the rectum and below the bladder. The bladder stores urine. The urethra carries stored urine ou t of the body. An enlarged prostate can press on the urethra. This can make it harder to pass urine. The buildup of urine in the bladder can cause infection. Back pressure and infection may progress to bladder damage and kidney (renal) failure. What are the causes? This condition is part of the normal aging process. However, not all men develop problems from thiscondition. If the prostate enlarges away from the urethra, urine flow will not be blocked. If it enlarges toward the urethra and compresses it, there will be problems passing urine. What increases the risk? This condition is more likely to develop in men older than 50 years. What are the signs or symptoms? Symptoms of this condition include: ??? Getting up often during the night to urinate. ??? Needing to urinate frequently during the day. ??? Difficulty starting urine flow. ??? Decrease in size and strength of your urine stream. ??? Leaking (dribbling) after urinating. ??? Inability to pass urine. This needs immediate treatment. ??? Inability to completely empty your bladder. ??? Pain when you pass urine. This is more common if there is also an infection. ??? Urinary tract infection (UTI). How is this diagnosed? This condition is diagnosed based on your medical history, a physical exam, and your symptoms. Tests will also be done, such as: ??? A post-void bladder scan. This measures any amount of urine that may remain in your bladder after you finish urinating. ??? A digital rectal exam. In a rectal exam, your health care provider checks your prostate by putting a lubricated, gloved finger into your rectum to feel the back of your prostate gland. This exam detects the size of your gland and any abnormal lumps or growths. ??? An exam of your urine (urinalysis). ??? A prostate specific antigen (PSA) screening. This is a blood test used to screen for prostate cancer. ??? An ultrasound. This test uses sound waves to electronically produce a picture of your prostate gland. Your health care provider may refer you to a specialist in kidney and prostate diseases (urologist). How is this treated? Once symptoms begin, your health care provider will monitor your condition (active surveillance or watchful waiting). Treatment for this condition will depend on the severity of your condition. Treatment may include: ??? Observation and yearly exams. This may be the only treatment needed if your condition and symptoms are mild. ??? Medicines to relieve your symptoms, including: ? Medicines to shrink the prostate. ? Medicines to relax the muscle of the prostate. ??? Surgery in severe cases. Surgery may include: ? Prostatectomy. In this procedure, the prostate tissue is removed completely through an open incision or with a laparoscope or robotics. ? Transurethral resection of the prostate (TURP). In this procedure, a tool is inserted through theopening at the tip of the penis (urethra). It is used to cut away tissue of the inner core of the prostate. The pieces are removed through the same opening of the penis. This removes the blockage. ? Transurethral incision (TUIP). In this procedure, small cuts are made in the prostate. This lessens the prostate's pressure on the urethra. ? Transurethral microwave thermotherapy (TUMT). This procedure uses microwaves to create heat. The heat destroys and removes a small amount of prostate tissue. ? Transurethral needle ablation (TUNA). This procedure uses radio frequencies to destroy and removea small amount of prostate tissue. ? Interstitial laser coagulation (ILC). This procedure uses a laser to destroy and remove a small amount of prostate tissue. ? Transurethral electrovaporization (TUVP). This procedure uses electrodes to destroy and remove a small amount of prostate tissue. ? Prostatic urethral lift. This procedure inserts an implant to push the lobes of the prostate awayfrom the urethra. Follow these instructions at home: ??? Take vhhj-ltn-apjiket and prescription medicines only as told by your health care provider. ??? Monitor your symptoms for any changes. Contact your health care provider with any changes. ??? Avoid drinking large amounts of liquid before going to bed or out in public. ??? Avoid or reduce how much caffeine or alcohol you drink. ??? Give yourself time when you urinate. ??? Keep all follow-up visits. This is important. Contact a health care provider if: ??? You have unexplained back pain. ??? Your symptoms do not get (more content not included)...[facility]11-04-2024 Hospital Discharge instructions Patient Education 02/03/2024 12:19:23 Benign Prostatic Hyperplasia Benign Prostatic Hyperplasia Benign prostatic hyperplasia (BPH) is an enlarged prostate gland that is caused by the normal agingprocess. The prostate may get bigger as a man gets older. The condition is not caused by cancer. The prostate is a walnut-sized gland that is involved in the production of semen. It is located in front of the rectum and below the bladder. The bladder stores urine. The urethra carries stored urine ou t of the body. An enlarged prostate can press on the urethra. This can make it harder to pass urine. The buildup of urine in the bladder can cause infection. Back pressure and infection may progress to bladder damage and kidney (renal) failure. What are the causes? This condition is part of the normal aging process. However, not all men develop problems from thiscondition. If the prostate enlarges away from the urethra, urine flow will not be blocked. If it enlarges toward the urethra and compresses it, there will be problems passing urine. What increases the risk? This condition is more likely to develop in men older than 50 years. What are the signs or symptoms? Symptoms of this condition include: Getting up often during the night to urinate. Needing to urinate frequently during the day. Difficulty starting urine flow. Decrease in size and strength of your urine stream. Leaking (dribbling) after urinating. Inability to pass urine. This needs immediate treatment. Inability to completely empty your bladder. Pain when you pass urine. This is more common if there is also an infection. Urinary tract infection (UTI). How is this diagnosed? This condition is diagnosed based on your medical history, a physical exam, and your symptoms. Tests will also be done, such as: A post-void bladder scan. This measures any amount of urine that may remain in your bladder after you finish urinating. A digital rectal exam. In a rectal exam, your health care provider checks your prostate by putting a lubricated, gloved finger into your rectum to feel the back of your prostate gland. This exam detects the size of your gland and any abnormal lumps or growths. An exam of your urine (urinalysis). A prostate specific antigen (PSA) screening. This is a blood test used to screen for prostate cancer. An ultrasound. This test uses sound waves to electronically produce a picture of your prostate gland. Your health care provider may refer you to a specialist in kidney and prostate diseases (urologist). How is this treated? Once symptoms begin, your health care provider will monitor your condition (active surveillance or watchful waiting). Treatment for this condition will depend on the severity of your condition. Treatment may include: Observation and yearly exams. This may be the only treatment needed if your condition and symptoms are mild. Medicines to relieve your symptoms, including: ?Medicines to shrink the prostate. ?Medicines to relax the muscle of the prostate. Surgery in severe cases. Surgery may include: ?Prostatectomy. In this procedure, the prostate tissue is removed completely through an open incision or with a laparoscope or robotics. ?Transurethral resection of the prostate (TURP). In this procedure, a tool is inserted through the opening at the tip of the penis (urethra). It is used to cut away tissue of the inner core of the prostate. The pieces are removed through the same opening of the penis. This removes the blockage. ?Transurethral incision (TUIP). In this procedure, small cuts are made in the prostate. This lessens the prostate's pressure on the urethra. ?Transurethral microwave thermotherapy (TUMT). This procedure uses microwaves to create heat. The heat destroys and removes a small amount of prostate tissue. ?Transurethral needle ablation (TUNA). This procedure uses radio frequencies to destroy and remove a small amount of prostate tissue. ?Interstitial laser coagulation (ILC). This procedure uses a laser to destroy and remove a small amount of prostate tissue. ?Transurethral electrovaporization (TUVP). This procedure uses electrodes to destroy and remove a small amount of prostate tissue. ?Prostatic urethral lift. This procedure inserts an implant to push the lobes of the prostate away from the urethra. Follow these instructions at home: Take opzy-hgz-gskwjvw and prescription medicines only as told by your health care provider. Monitor your symptoms for any changes. Contact your health care provider with any changes. Avoid drinking large amounts of liquid before going to bed or out in public. Avoid or reduce how much caffeine or alcohol you drink. Give yourself time when you urinate. Keep all follow-up visits. This is important. Contact a health care provider if: You have unexplained back pain. Your symptoms do not get better with treatment. You develop side effects from the medicine you are taking. Your urine becomes very dark or has a bad smell. Your lower abdomen becomes distended and you have trouble passing urine. Get help right away if: You have a fever or chills. You suddenly cannot urinate. You feel light-headed or very dizzy, or you faint. There are large amounts of blood or clots in your urine. Your urinary problems become hard to manage. You develop moderate to severe low back or flank pain. The flank is the side of your body between the ribs and the hip. These symptoms may be an emergency. Get help right away. Call 911. Do not wait to see if the symptoms will go away. Do not drive yourself to the hospital. Summary Benign prostatic hyperplasia (BPH) is an enlarged prostate that is caused by the normal aging process. It is not caused by cancer. An enlarged prostate can press on the urethra. This can make it hard to pass urine. This condition is more likely to develop in men older than 50 years. Get help right away if you suddenly cannot urinate. This information is not intended to replace advice given to you by your health care provider. Make sure you discuss any questions you have with your health care provider. Document Revised: 10/04/2021 Document Reviewed: 10/04/2021 [employer] Patient Education 2023 [employer]. Follow Up Care 10/29/2022 16:17:49 With:OLNG ZIMMERMAN, Dioni Wheeler, URL Address: [facility] [address] , [place] [address]- When: Unknown [facility] 07-31-2023 Hospital Discharge instructions Patient Education 10/29/2022 16:10:55 Benign Prostatic Hyperplasia Benign Prostatic Hyperplasia Benign prostatic hyperplasia (BPH) is an enlarged prostate gland that is caused by the normal agingprocess. The prostate may get bigger as a man gets older. The condition is not caused by cancer. The prostate is a walnut-sized gland that is involved in the production of semen. It is located in front of the rectum and below the bladder. The bladder stores urine. The urethra carries stored urine ou t of the body. An enlarged prostate can press on the urethra. This can make it harder to pass urine. The buildup of urine in the bladder can cause infection. Back pressure and infection may progress to bladder damage and kidney (renal) failure. What are the causes? This condition is part of the normal aging process. However, not all men develop problems from thiscondition. If the prostate enlarges away from the urethra, urine flow will not be blocked. If it enlarges toward the urethra and compresses it, there will be problems passing urine. What increases the risk? This condition is more likely to develop in men older than 50 years. What are the signs or symptoms? Symptoms of this condition include: Getting up often during the night to urinate. Needing to urinate frequently during the day. Difficulty starting urine flow. Decrease in size and strength of your urine stream. Leaking (dribbling) after urinating. Inability to pass urine. This needs immediate treatment. Inability to completely empty your bladder. Pain when you pass urine. This is more common if there is also an infection. Urinary tract infection (UTI). How is this diagnosed? This condition is diagnosed based on your medical history, a physical exam, and your symptoms. Tests will also be done, such as: A post-void bladder scan. This measures any amount of urine that may remain in your bladder after you finish urinating. A digital rectal exam. In a rectal exam, your health care provider checks your prostate by putting a lubricated, gloved finger into your rectum to feel the back of your prostate gland. This exam detects the size of your gland and any abnormal lumps or growths. An exam of your urine (urinalysis). A prostate specific antigen (PSA) screening. This is a blood test used to screen for prostate cancer. An ultrasound. This test uses sound waves to electronically produce a picture of your prostate gland. Your health care provider may refer you to a specialist in kidney and prostate diseases (urologist). How is this treated? Once symptoms begin, your health care provider will monitor your condition (active surveillance or watchful waiting). Treatment for this condition will depend on the severity of your condition. Treatment may include: Observation and yearly exams. This may be the only treatment needed if your condition and symptoms are mild. Medicines to relieve your symptoms, including: ?Medicines to shrink the prostate. ?Medicines to relax the muscle of the prostate. Surgery in severe cases. Surgery may include: ?Prostatectomy. In this procedure, the prostate tissue is removed completely through an open incision or with a laparoscope or robotics. ?Transurethral resection of the prostate (TURP). In this procedure, a tool is inserted through the opening at the tip of the penis (urethra). It is used to cut away tissue of the inner core of the prostate. The pieces are removed through the same opening of the penis. This removes the blockage. ?Transurethral incision (TUIP). In this procedure, small cuts are made in the prostate. This lessens the prostate's pressure on the urethra. ?Transurethral microwave thermotherapy (TUMT). This procedure uses microwaves to create heat. The heat destroys and removes a small amount of prostate tissue. ?Transurethral needle ablation (TUNA). This procedure uses radio frequencies to destroy and remove a small amount of prostate tissue. ?Interstitial laser coagulation (ILC). This procedure uses a laser to destroy and remove a small amount of prostate tissue. ?Transurethral electrovaporization (TUVP). This procedure uses electrodes to destroy and remove a small amount of prostate tissue. ?Prostatic urethral lift. This procedure inserts an implant to push the lobes of the prostate away from the urethra. Follow these instructions at home: Take hagr-urd-bfjhywe and prescription medicines only as told by your health care provider. Monitor your symptoms for any changes. Contact your health care provider with any changes. Avoid drinking large amounts of liquid before going to bed or out in public. Avoid or reduce how much caffeine or alcohol you drink. Give yourself time when you urinate. Keep all follow-up visits. This is important. Contact a health care provider if: You have unexplained back pain. Your symptoms do not get better with treatment. You develop side effects from the medicine you are taking. Your urine becomes very dark or has a bad smell. Your lower abdomen becomes distended and you have trouble passing urine. Get help right away if: You have a fever or chills. You suddenly cannot urinate. You feel light-headed or very dizzy, or you faint. There are large amounts of blood or clots in your urine. Your urinary problems become hard to manage. You develop moderate to severe low back or flank pain. The flank is the side of your body between the ribs and the hip. These symptoms may be an emergency. Get help right away. Call 911. Do not wait to see if the symptoms will go away. Do not drive yourself to the hospital. Summary Benign prostatic hyperplasia (BPH) is an enlarged prostate that is caused by the normal aging process. It is not caused by cancer. An enlarged prostate can press on the urethra. This can make it hard to pass urine. This condition is more likely to develop in men older than 50 years. Get help right away if you suddenly cannot urinate. This information is not intended to replace advice given to you by your health care provider. Make sure you discuss any questions you have with your health care provider. Document Revised: 10/04/2021 Document Reviewed: 10/04/2021 [employer] Patient Education 2022 [employer]. Follow Up Care 10/23/2021 15:41:14 With:LONG ZIMMERMAN, Dioni Wheeler, URL Address: [facility] [address] [place] [address]- [phone] When: Unknown Comments:1 yr w/ PSA and KATE [facility] [place] 07-25-2022 Hospital Discharge instructions Patient Education 10/23/2021 15:35:27 Prostate Cancer Screening Prostate Cancer Screening The prostate is a walnut-sized gland that is located below the bladder and in front of the rectum in males. The function of the prostate (prostate gland) is to add fluid to semen during ejaculation. Prostate cancer is the second most common type of cancer in men. A screening test for cancer is a test that is done before cancer symptoms start. Screening can helpto identify cancer at an early stage, when the cancer can be treated more easily. The recommended prostate cancer screening test is a blood test called the prostate-specific antigen (PSA) test. PSA is a protein that is made in the prostate. As you age, your prostate naturally produces more PSA. Abnormally high PSA levels may be caused by: Prostate cancer. An enlarged prostate that is not caused by cancer (benign prostatic hyperplasia, BPH). This condition is very common in older men. A prostate gland infection (prostatitis). Medicines to assist with hair growth, such as finasteride. Depending on the PSA results, you may need more tests, such as: A physical exam to check the size of your prostate gland. Blood and imaging tests. A procedure to remove tissue samples from your prostate gland for testing (biopsy). Who should have screening? Screening recommendations vary based on age. If you are younger than age 40, screening is not recommended. If you are age 40 54 and you have no risk factors, screening is not recommended. If you are younger than age 55, ask your health care provider if you need screening if you have oneof these risk factors: ?Being of -Indian descent. ?Having a family history of prostate cancer. If you are age 55 69, talk with your health care provider about your need for screening and how often screening should be done. If you are older than age 70, screening is not recommended. This is because the risks that screening can cause are greater than the benefits that it may provide (risks outweigh the benefits). If you are at high risk for prostate cancer, your health care provider may recommend that you have screenings more often or start screening at a younger age. You may be at high risk if you: Are older than age 55. Are -Indian. Have a father, brother, or uncle who has been diagnosed with prostate cancer. The risk may be higher if your family member's cancer occurred at an early age. What are the benefits of screening? There is a small chance that screening may lower your risk of dying from prostate cancer. The chance is small because prostate cancer is typically a slow-growing cancer, and most men with prostate cancer from a different cause. What are the risks of screening? The main risk of prostate cancer screening is diagnosing and treating prostate cancer that would never have caused any symptoms or problems (overdiagnosis and overtreatment). PSA screening cannot tell you if your PSA is high due to cancer or a different cause. A prostate biopsy is the only procedure to diagnose prostate cancer. Even the results of a biopsy may not tell you if your cancer needs jasmeet treated. Slow-growing prostate cancer may not need any treatment other than monitoring, so diagnosing and treating it may cause unnecessary stress or other side effects. A prostate biopsy may also cause: Infection or fever. A false negative. This is a result that shows that you do not have prostate cancer when you actually do have prostate cancer. Questions to ask your health care provider When should I start prostate cancer screening? What is my risk for prostate cancer? How often do I need screening? What type of screening tests do I need? How do I get my test results? What do my results mean? Do I need treatment? Contact a health care provider if: You have difficulty urinating. You have pain when you urinate or ejaculate. You have blood in your urine or semen. You have pain in your back or in the area of your prostate. You have trouble getting or maintaining an erection (erectile dysfunction, ED). Summary Prostate cancer is a common type of cancer in men. The prostate (prostate gland) is located below the bladder and in front of the rectum. This gland adds fluid to semen during ejaculation. Prostate cancer screening may identify cancer at an early stage, when the cancer can be treated more easily. The prostate-specific antigen (PSA) test is the recommended screening test for prostate cancer. Discuss the risks and benefits of prostate cancer screening with your health care provider. If you are age 70 or older, screening is likely to lead to more risks than benefits (risks outweigh the benefits). This information is not intended to replace advice given to you by your health care provider. Make sure you discuss any questions you have with your health care provider. Document Released: 12/27/2017 Document Revised: 02/28/2018 Document Reviewed: 12/27/2017 [employer] Patient Education 2020 [employer]. Follow Up Care 10/17/2020 16:24:01 With:Dioni GARCIA MD, URL Address: [facility] [address], [place] [address]- [phone] When:10/23/2022 Comments:PSA [facility] evaluation + Plan note Future Appointments Appointment Date:10/29/2022 02:45:00 PM Scheduled Provider:Dioni GARCIA MD Location:[facility] Appointment Type:URO Office Visit Diagnostic Tests Pending * PSA Total 10/23/21 [facility] evaluation + Plan note Future Appointments Appointment Date:11/04/2023 02:30:00 PM Scheduled Provider:Dioni GARCIA MD [facility] Appointment Type:URO Office Visit Diagnostic Tests Pending * PSA Total 10/29/22 [facility] evaluation + Plan note Future Appointments Appointment Date:02/05/2025 11:00:00 AM Scheduled Provider:Dioni GARCIA MD [facility] App[facility] Type:URO Office Visit Diagnostic Tests Pending * PSA Total 02/03/24 [facility] evaluation + Plan note Future Appointments Appointment Date:02/05/2025 11:00:00 AM Scheduled Provider:Dioni GARCIA MD Location:[facility] Appointment Type:URO Office Visit [facility] Hospital course Narrative No data available for this section [facility] Hospital Discharge instructions No data available for this section [facility] progress note No data available for this section [facility] Summary Purpose Family History No Family History Records Found No data available for this section No data available for this section No Family History Records Found No data available for this section No Family History Records Found Advance Directives No Advanced Directives Records FoundNo Advanced Directives Records FoundNo Advanced Directives Records Found Additional Source Comments Care Team (unrecognized sect ion and content) Personnel Name: Sahra Byrne MD Address: [address] [place] [address] Personnel Name: Sahra Byrne MD Address: Address: [address] [place] [address] Personnel Name: Sahra Byrne MD Address: Address: [address] [place] [address] Personnel Name: Sahra Byrne MD Address: [address] [place] [address] [employer]: Personnel Name: Sahra Byrne MD Address: [address] [place] [address] [employer]: (unrecognized sect ion and content) No Status Records FoundNo Status Records FoundNo Status Records Found INFORMATION SOURCE (unrecogn ized section and content) DATE CREATED AUTHOR 02/28/2022 [place] DATE CREATED AUTHOR AUTHOR'S ORGANIZ ATION 02/06/2025 [facility] DATE CREATED AUTHOR AUTHOR'S ORGANIZ ATION 02/07/2025 [facility] FOR RECORDS PERTAINING TO PATIENTS WHO ARE OR HAVE BEEN ENROLLED IN A CHEMICAL DEPENDENCY/SUBSTANCEABUSE PROGRAM, SOME INFORMATION MAY BE OMITTED. This clinical summary was aggregated from multiple sources. Caution should be exercised in using it in the provision of clinical care. This summary normalizes information from multiple sources, and as a consequence, information in this document may materially change the coding, format and clinical context of patient data. In addition, data may be omitted in some cases. CLINICAL DECISIONS SHOULD BE BASED ON THE PRIMARY CLINICAL RECORDS. [facility] [employer] [facility]. provides no warranty or guarantee of the accuracy or completeness of information in this document.
[2025-03-09 09:26] LABS: Hematocrit 45.2 % (42.0-54.0); Hemoglobin 15.7 g/dL (14.0-18.0); Immature Granulocytes Abs Auto 0.02 10^3/uL (0.00-0.03); Immature Granulocytes Pct Auto 0.3 % (0.0-0.5); Lymphocytes Absolute Auto 1.7 10^3/uL (1.2-3.8); Mean Corpuscular HGB Conc 34.7 g/dL (29.9-35.2); Mean Corpuscular Hemoglobin 32.8 pg (25.9-34.0); Mean Corpuscular Volume 94.4 fL (80.0-94.0); Platelet Count 253 10^3/uL (150-450); Red Blood Count 4.79 10^6/uL (4.70-6.10); White Blood Count 6.5 10^3/uL (4.0-11.0)
[2025-03-09 10:02] LABS: Alanine Aminotransferase 39 U/L (16-63); Albumin Globulin Ratio 1.0; Albumin Level 3.5 g/dL (3.4-5.0); Alkaline Phosphatase 78 U/L (46-116); Anion Gap 11.3; Aspartate Amino Transferase 24 U/L (15-37); Blood Urea Nitrogen 9.0 mg/dL (7.0-18.0); Calcium 8.4 mg/dL (8.5-10.1); Carbon Dioxide 32.4 mmol/L (21.0-32.0); Chloride 101 mmol/L (98-107); Cholesterol 221 mg/dL (<=200); Estimated GFR (African America >60 (>=60 mL/min/1.73m^2); Estimated GFR (Non-African Ame >60 (>=60 mL/min/1.73m^2); Free T3 2.61 pg/mL (2.18-3.98); Globulin 3.5 g/dL; Glucose 258 mg/dL (74-106); HDL Cholesterol 60 mg/dL (40-60); Potassium 3.7 mmol/L (3.5-5.1); Sodium 141 mmol/L (136-145); Thyroid Stimulating Hormone 2.584 uIU/mL (0.358-3.740); Total Protein 7.0 g/dL (6.4-8.2); Triglycerides 131 mg/dL (<=150); Uric Acid 3.3 mg/dL (3.5-7.2); VLDL CHOLESTEROL 26.2 mg/dL
== END 2025-03-09 08:32 | disposition home or self-care (01) ==
LOC: LAB 08:33
PROVIDERS: PCP Family Medicine; Visit Provider Family Medicine
DX: E78.5 Hyperlipidemia, unspecified (principal); E78.1 Pure hyperglyceridemia; R73.09 Other abnormal glucose; M10.9 Gout, unspecified; Z12.12 Encounter for screening for malignant neoplasm of rectum; E03.9 Hypothyroidism, unspecified; I10 Essential (primary) hypertension; Z12.5 Encounter for screening for malignant neoplasm of prostate; D50.9 Iron deficiency anemia, unspecified
CPT/HCPCS: 36415; 80053; 80061; 83036; 83525; 84436; 84443; 84481; 84550; 85025; G0103